=== PATIENT | male | born 1985 | race African-American/Black ===

== ENCOUNTER 2017-09-03 04:46 | Emergency (ER) | payer BC ==
[~2017-09-03] VITALS: Ht 167.6 cm; Wt 126.0 kg
[2017-09-03] MEDS ORDERED: CYCLOBENZAPRINE 10MG TABLET PO ONE (05:30)
[2017-09-03] MEDS ORDERED: KETOROLAC 30MG/ML VIAL IV ONE ×2 (05:30→13:45)
[2017-09-03] MEDS ORDERED: MORPHINE SULFATE 4 MG/ML CPJ (NOT FOR IM USE) IV ONE ×2 (07:00→13:45)
[2017-09-03] MEDS ORDERED: DIAZEPAM 5 MG TABLET PO ONE (08:15)
[2017-09-03] MEDS ORDERED: DEXAMETHASONE 4MG/ML 1ML VIAL IV ONE (13:45)
[2017-09-03 17:03] VITALS: BP 122/73
== END 2017-09-03 17:04 | disposition home or self-care (01) ==
LOC: ER 04:46
DX: M51.26 Other intervertebral disc displacement, lumbar region (principal); F12.10 Cannabis abuse, uncomplicated
CPT/HCPCS: 72148; 96374; 96375; 96376; 99284; J1100; J1885; J2270; Z7610